=== PATIENT | male | born 1970 | race African-American/Black ===

== ENCOUNTER 2018-04-15 02:38 | Emergency (ER) | payer MEDICAID ==
[~2018-04-15] VITALS: Ht 160 cm; Wt 75.0 kg
[2018-04-15] MEDS ORDERED: SODIUM CHLORIDE 0.9% 1,000 ML IV ONE (03:17)
[2018-04-15 03:41] LABS: BASOPHILS % 0.4 % (0.0-2.0); EOSINOPHILS % 0.5 % (0.0-5.0); HEMATOCRIT. 34.4 % (42.0-52.0); HEMOGLOBIN. 11.5 g/dL (14.0-18.0); MEAN CORPUSCULAR HEMOGLOBIN 28.1 pg (28.0-32.0); MEAN CORPUSCULAR VOLUME 83.9 fL (80.0-94.0); MONOCYTES % 4.7 % (2.0-8.0); NEUTROPHILS % 77.4 % (40.0-76.0); PLATELET 210 x1000/uL (130-400); RED CELL DISTRIBUTION WIDTH 13.3 % (11.6-14.6)
[2018-04-15 03:45] LABS: CHLORIDE 104 mEq/L (98-107)
[2018-04-15] MEDS ORDERED: POTASSIUM CHLORIDE 20MEQ TABLET SR PO NR (04:00)
[2018-04-15 07:10] VITALS: BP 101/47
== END 2018-04-15 10:01 | disposition home or self-care (01) ==
LOC: ER 08:37
DX: E87.6 Hypokalemia (principal); E86.0 Dehydration; I95.1 Orthostatic hypotension
CPT/HCPCS: 36415; 80053; 85025; 96360; 96361; 99285; J7030